=== PATIENT | male | born 1960 | race Caucasian/White ===

== ENCOUNTER → 2016-10-16 | Outpatient (CLI) | payer BC ==
[~2016-10-16] MED LIST: ALLO100T30 PO; AMLO5TAB2 PO; ATOR40TA78 PO; LISI40TA PO; ZOLP10TA PO
[2016-10-16 15:46] LABS: ASPARTATE AMINO TRANSFERASE 55 U/L (15-37); BLOOD UREA NITROGEN 12 mg/dL (7-18)
== END | disposition home or self-care (01) ==
LOC: STAR 14:43
PROVIDERS: ATTEND Orthopaedic Surgery
DX: M75.122 Complete rotator cuff tear or rupture of left shoulder, not specified as traumatic (principal); M75.42 Impingement syndrome of left shoulder; M19.012 Primary osteoarthritis, left shoulder
CPT/HCPCS: 36415; 80053

== ENCOUNTER 2016-10-21 07:05 | Day surgery (SDC) | payer BC ==
[~2016-10-21] VITALS: Ht 167.6 cm; Wt 83.0 kg
[~2016-10-21 07:05] MED LIST changes: +BUPIVACAINE/PF 0.25% ONE; +EPINEPHRINE 1 MG/ML, 1ML ONE
[2016-10-21] MEDS ORDERED: MIDAZOLAM 1 MG/ML, 2ML ONE (07:41)
[2016-10-21] MEDS ORDERED: LACTATED RINGERS 1,000 ML IV SCH (07:41)
[2016-10-21 07:42] VITALS: BP 157/91
[2016-10-21] MEDS ORDERED: PANT40TA3 PO (07:42)
[2016-10-21] MEDS ORDERED: FENTANYL PF 100 MCG/2ML ONE ×2 (07:42→10:32)
[2016-10-21] MEDS ORDERED: ROCURONIUM 10 MG/ML ONE (08:53)
[2016-10-21] MEDS ORDERED: PROPOFOL 10 MG/ML, 20ML ONE (08:53)
[2016-10-21] MEDS ORDERED: DEXAMETHASONE 4 MG/ML, 1ML ONE (08:53)
[2016-10-21] MEDS ORDERED: ONDANSETRON 2MG/ML, 2ML ONE (08:53)
[2016-10-21] MEDS ORDERED: CEFAZOLIN 1,000 MG ONE (08:53)
[2016-10-21] MEDS ORDERED: SUCCINYLCHOLINE 20 MG/ML, 10ML ONE (08:53)
[2016-10-21] MEDS ORDERED: ACETAMINOPHEN 325 MG TABLET PO PRN (10:00)
[2016-10-21] MEDS ORDERED: hydrALAzine 20 MG/ML, 1ML IV PRN (10:00)
[2016-10-21] MEDS ORDERED: HYDROmorphone 1 MG/ML, 1ML IV PRN (10:00)
[2016-10-21] MEDS ORDERED: OXYcodone 5 MG/5 ML ORAL.SOL UDC PO PRN (10:00)
[2016-10-21] MEDS ORDERED: PROMETHAZINE 25 MG/ML, 1ML IV PRN (10:00)
[2016-10-21] MEDS ORDERED: OXYcodone 5 MG/5 ML ORAL.SOL UDC ONE (10:10)
[2016-10-21] MEDS ORDERED: ACETAMINOPHEN 650 MG/20.3 ML UDC ONE (10:10)
[2016-10-21] MEDS: FENTANYL PF 100 MCG/2ML IV PRN ×2 (10:33→10:40)
== END 2016-10-21 11:45 ==
LOC: OUT 07:05
PROVIDERS: ATTEND Orthopaedic Surgery
DX: M75.112 Incomplete rotator cuff tear or rupture of left shoulder, not specified as traumatic (principal); S46.112A Strain of muscle, fascia and tendon of long head of biceps, left arm, initial encounter; S43.432A Superior glenoid labrum lesion of left shoulder, initial encounter; M19.012 Primary osteoarthritis, left shoulder; M75.42 Impingement syndrome of left shoulder; X58.XXXA Exposure to other specified factors, initial encounter; Y93.89 Activity, other specified; Y92.89 Other specified places as the place of occurrence of the external cause; Y99.8 Other external cause status; I10 Essential (primary) hypertension; E78.5 Hyperlipidemia, unspecified; M10.9 Gout, unspecified
CPT/HCPCS: 29823; 29826; J0171; J0330; J0690; J1100; J2250; J2405; J2704; J3010; J3490; J7120